=== PATIENT | male | born 1965 | race Caucasian/White ===

== ENCOUNTER 2018-01-15 12:12 | Emergency (ER) | payer OTHER ==
[~2018-01-15] VITALS: Ht 187.9 cm; Wt 108.9 kg
--- NOTE | ~2018-01-15 | EKG ---
[place], [place] ELECTROCARDIOGRAM REPORT NAME: VICTOR HUGO TANNER UNIT #: [id number] ROOM: DOCTOR: NITISH TAYLOR MD BIRTHDATE: [birth year] DOS: 01/15/2018 TIME: 1310 hours. Normal sinus rhythm, 77 beats per minute. The tracing is within normal limits. No previous tracing is available for comparison. NITISH TAYLOR MD CM:EKGRPT:ELECTROCARDIOGRAM REPORT [id number] NITISH TAYLOR MD
[~2018-01-15 12:12] MED LIST: SYNTHROID0.025 MG PO; ZESTRIL PO
[2018-01-15 13:10] LABS: BASO % 0.6 % (0.0-1.0); EOS # 0.1 10*3/uL (0.0-0.4); EOS % 2.3 % (1.0-4.0); HEMOGLOBIN 14.5 g/dl (14.0-18.0); LYMPH # 1.3 10*3/uL (1.3-4.4); LYMPH % 25.8 % (27.0-41.0); MEAN CELL VOLUME 85.6 fl (80.0-94.0); MEAN CORPUSCULAR HGB 30.3 pg (27.0-31.0); MEAN CORPUSCULAR HGB CONC 35.4 g/dl (33.0-37.0); MEAN PLATELET VOLUME 9.4 fl (9.6-12.3); MONO # 0.5 10*3/uL (0.1-1.0); MONO % 9.4 % (3.0-9.0); NEUT # 3.1 10*3/uL (2.3-7.9); NEUT % 61.5 % (47.0-73.0); PLATELET COUNT AUTOMATED 164 10*3/uL (130-400); RED BLOOD COUNT 4.79 10*6/uL (4.50-5.90); RED CELL DISTRI WIDTH 12.6 % (0-14.5); WHITE BLOOD COUNT 5.1 10*3/uL (4.8-10.8)
[2018-01-15 13:25] LABS: ALBUMIN 4.4 gm/dl (3.1-4.5); ALKALINE PHOSPHATASE 55 U/L (45-117); BUN 11 mg/dl (7-24); CHLORIDE 105 mmol/L (98-107); CREATININE 0.91 mg/dL (0.70-1.30); POTASSIUM 4.1 mmol/L (3.5-5.1); SGOT/AST 19 IU/L (3-35); SGPT/ALT 42 U/L (12-78); SODIUM 138 mmol/L (136-145); TOTAL PROTEIN 7.5 gm/dL (6.4-8.2)
[2018-01-15 13:26] LABS: TROPONIN I < 0.015 ng/ml (<0.045)
== END 2018-01-15 16:13 | disposition home or self-care (01) ==
LOC: ED 12:12
PROVIDERS: Nurse Practitioner Family
DX: Z00.8 Encounter for other general examination (principal); E78.5 Hyperlipidemia, unspecified; I10 Essential (primary) hypertension; Z79.899 Other long term (current) drug therapy